=== PATIENT | female | born 1965 | race Caucasian/White ===

== ENCOUNTER 2020-03-09 | Emergency (ER) | payer OTHER ==
[2020-03-09 00:03] VITALS: BMI 19.5
[2020-03-09 00:18] VITALS: BP 104/68; PULSE 82; TEMP 98.1
[2020-03-09] MEDS ORDERED: RABIES VACCINE (PCEC)/PF 2.5 UNIT/VIAL IM ONE ×2 (00:20→00:22)
--- NOTE | 2020-03-09 00:22 | PDOC ---
*Physical Exam - Vital Signs Last Vital Signs Temp Pulse Resp BP Pulse Ox 98.1 F 82 17 104/68 100 03/09/20 00:01 03/09/20 00:01 03/09/20 00:01 03/09/20 00:01 03/09/20 00:01 - Physical Exam 03/09/20 06:42 here for rabies vaccine #2 s/p exposure to bat General Appearance: Yes: Nourished. No: Apparent Distress Medical Decision Making - Medical Decision Making 03/09/20 06:42 rabies vaccine #2 administered Discharge - Discharge Information Problems reviewed: No Clinical Impression/Diagnosis: Exposure to bat without known bite Condition: Good - Admission No - Follow up/Referral - Patient Discharge Instructions Patient Printed Discharge Instructions: DI for Rabies Vaccine - Post Discharge Activity Work/Back to School Note: Rabies Vaccination F/U Jessie.
== END 2020-03-09 00:41 ==
LOC: FER
PROC: 3E0234Z Introduction of Serum, Toxoid and Vaccine into Muscle, Percutaneous Approach (ICD-10-PCS; principal; 2020-03-09)
DX: Z20.3 Contact with and (suspected) exposure to rabies (principal)
CPT/HCPCS: 90675; 99281-25